=== PATIENT | male | born 1990 | race African-American/Black ===

== ENCOUNTER 2017-03-03 02:39 | Emergency (ER) | payer OTHER ==
[2017-03-03 02:53] VITALS: BP 150/90; PULSE 54; TEMP 98.1; BMI 32.6
--- NOTE | 2017-03-03 03:40 | PDOC ---
History of Present Illness - General Chief Complaint: Ear Problem Stated Complaint: EAR PAIN Time Seen by Provider: 03/03/17 03:05 History Source: Patient Exam Limitations: No Limitations - History of Present Illness Initial Comments: 03/03/17 03:40 26yo Male patient with no significant past medical history presents to ED c/o right ear pain that has worsened w/ associated h/a. Patient also reports small amount of drainage noted from right ear earlier. ASA for pain 1 hr ago. He denies any other complaints at this time. Timing/Duration: reports: yesterday Severity: reports: moderate Episode Description: See HPI Possible Cause: No: no prior episodes, other, allergen exposure, chronic episodes, frequent episodes, illness exposure, irritant gases exposure, occasional episodes, smoke exposure, unknown cause Modifying Factors: worse with: activity, albuterol inhaler, albuterol nebulizer , antibiotics, coughing, lying down, oxygen, rest, other Associated Symptoms: denies: denies symptoms, chest pain/soreness, cough, dizziness, earache, facial pain, fever/chills, headache, lightheadedness, muscle aches, nasal congestion, nasal drainage, shortness of breath, sinus infection, sore throat, wheezing, other Past History - Travel Traveled outside of the country in the last 30 days: No Close contact w/someone who was outside of country & ill: No - Past Medical History Allergies/Adverse Reactions: Allergies Allergy/AdvReac Type Severity Reaction Status Date / Time No Known Allergies Allergy Verified 03/03/17 02:52 Home Medications: Ambulatory Orders Amoxicillin/Potassium Clav [Augmentin 875-125 Tablet] 1 each PO Q12H #20 tablet 03/03/17 Ibuprofen [Motrin -] 600 mg PO Q6H PRN #30 tablet 03/03/17 Other medical history: denies - Psycho/Social/Smoking Cessation Hx Anxiety: No Suicidal Ideation: No Smoking History: Never smoked Respiratory Specific PMHX - Complaint Specific PMHX Angina: No Bronchitis: No Pneumonia: No Pulmonary Embolus: No TB (Tuberculosis): No Review of Systems - Review of Systems Able to Perform ROS?: Yes Is the patient limited [place]an proficient: No Constitutional: No: Chills, Fever HEENTM: Yes: Ear Pain All Other Systems: Reviewed and Negative *Physical Exam - Vital Signs Last Vital Signs Temp Pulse Resp BP Pulse Ox 98.1 F 54 L 18 150/90 99 03/03/17 02:48 03/03/17 02:48 03/03/17 02:48 03/03/17 02:48 03/03/17 02:48 - Physical Exam General Appearance: Yes: Nourished, Appropriately Dressed. No: Apparent Distress, Mild Distress, Moderate Distress, Severe Distress HEENT: positive: EOMI, KATERIN, Normal ENT Inspection, Normal Voice, Symmetrical, Pharynx Normal, TM Bulging (Rt Ear), TM Erythema (Rt Ear). negative: TMs Normal Neck: positive: Trachea midline, Normal Thyroid, Supple, Lymphadenopathy (R). negative: Lymphadenopathy (L), Tender lateral, Tender midline Respiratory/Chest: positive: Lungs Clear, Normal Breath Sounds. negative: Chest Tender, Respiratory Distress, Accessory Muscle Use, Labored Respiration, Rapid RR, Rhonchi, Stridor, Wheezing Cardiovascular: positive: Regular Rhythm, Regular Rate Musculoskeletal: positive: Normal Inspection. negative: CVA Tenderness, Decreased Range of Motion, Vertebral Tenderness Extremity: positive: Normal Capillary Refill, Normal Inspection, Normal Range of Motion. negative: Pedal Edema, Swelling, Calf Tenderness, Erythema, Inflammation Integumentary: positive: Normal Color, Dry, Warm Neurologic: positive: electric distribution checker II-XII NML intact, Fully Oriented, Alert, Normal Mood/ Affect, Normal Response, Motor Strength 5/5 *DC/Admit/Observation/Transfer Diagnosis at time of Disposition: Otitis media Qualifiers: Otitis media type: suppurative Chronicity: acute Laterality: right Recurrence: not specified as recurrent Spontaneous tympanic membrane rupture: without spontaneous rupture Qualified Code(s): H66.001 - Acute suppurative otitis media without spontaneous rupture of ear drum, right ear - Discharge Dispostion Disposition: HOME Condition at time of disposition: Stable Admit: No - Prescriptions Prescriptions: Amoxicillin/Potassium Clav [Augmentin 875-125 Tablet] 1 each PO Q12H #20 tablet Ibuprofen [Motrin -] 600 mg PO Q6H PRN #30 tablet PRN Reason: Mild Pain - Patient Instructions Printed Discharge Instructions: DI for Otitis Media (Middle Ear Infection)- Child Additional Instructions: Follow up with your primary care provider this week for further evaluation. Take medications as prescribed. Print Language: ALBAN[place]
[2017-03-03] MEDS ORDERED: IBUPROFEN 400 MG TABLET (FP) PO ONE (03:55)
[2017-03-03] MEDS ORDERED: AMOX TR/POT CLAV 875MG/125MG TABLETS (FP) PO ONE (03:55)
[2017-03-03] MEDS ORDERED: IBUPROFEN 600 MG TABLET (FP) PO ONE (04:12)
[2017-03-03] MEDS ORDERED: AMOX TR/POT CLAV 875MG/125MG TABLETS (FP) ONE (04:12)
== END 2017-03-03 04:16 | disposition home or self-care (01) ==
LOC: JER 02:39
DX: H66.001 Acute suppurative otitis media without spontaneous rupture of ear drum, right ear (principal)
CPT/HCPCS: 99281-25